=== PATIENT | male | born 1970 | race African-American/Black ===

== ENCOUNTER 2017-05-21 14:01 | Emergency (ER) | payer OTHER ==
[~2017-05-21] VITALS: Ht 167.6 cm; Wt 79.4 kg
[2017-05-21] MEDS ORDERED: IBUPROFEN600 M1 PO (17:12)
[2017-05-21] MEDS ORDERED: TAMIFLU75 M1 PO (17:12)
--- NOTE | 2017-05-21 17:12 | ED INFLUENZA/URI COMPLAINT ---
History of Present Illness General Chief Complaint: General Adult Stated Complaint: "IM NOT FEELING RIGHT" GENERAL WEAKNESS Source: patient Exam Limitations: no limitations Vital Signs & Intake/Output Vital Signs & Intake/Output Vital Signs Date Time Temp Pulse Resp B/P B/P Pulse O2 O2 Flow FiO2 Mean Ox Delivery Rate 05/21 1416 98.1 96 18 153/88 98 Room Air Allergies Coded Allergies: No Known Allergies (05/21/17) Triage Note: PT COMPLAINS OF FLU LIKE SYMPTOMS THAT STARTED 3 DAYS AGO, ACHEY ALL OVER , N/V. Triage Nurses Notes Reviewed? yes HPI: Patient presents for evaluation of severe more or less constant flulike symptoms that began gradually over the weekend. Patient states today he had an onset rather suddenly of chills and hot sweats and muscle aches. He denies cough, diarrhea, dysuria, rashes, recent travel or known ill contacts. He denies any past medical history or current medications. Past History Travel History Traveled to [place] past 21 day No Medical History Any Pertinent Medical History? see below for history Neurological: NONE EENT: NONE Cardiovascular: hypertension Respiratory: NONE Gastrointestinal: NONE Hepatic: NONE Renal: NONE Musculoskeletal: NONE Psychiatric: NONE Endocrine: NONE Blood Disorders: NONE Cancer(s): NONE Surgical History Surgical History: non-contributory Psychosocial History What is your primary language Monegasque Tobacco Use: Never used ETOH Use: denies use Illicit Drug Use: denies illicit drug use Family History Hx Contributory? No Review of Systems Review of Systems Constitutional: Reports: see HPI. EENTM: Reports: no symptoms. Respiratory: Reports: no symptoms. Cardiovascular: Reports: no symptoms. GI: Reports: no symptoms. Genitourinary: Reports: no symptoms. Musculoskeletal: Reports: no symptoms. Skin: Reports: no symptoms. Neurological/Psychological: Reports: no symptoms. Hematologic/Endocrine: Reports: no symptoms. Immunologic/Allergic: Reports: no symptoms. All Other Systems: Reviewed and Negative Physical Exam Physical Exam Ears, Nose, Throat: SEE BELOW Comments: Gen.: Well-nourished, well-developed, no acute respiratory distress. Head: Normocephalic, atraumatic. Eyes: Normal inspection bilaterally Ears: Normal inspection bilaterally Nose: Normal inspection Throat/mouth : Moist mucosa Neck: Supple, full range of motion, no goiter Lungs: Quiet respirations Back: Normal range of motion Extremities: Normal range of motion grossly, no cyanosis clubbing or edema of the upper extremities Neurologic: Cranial nerves grossly intact, speech is clear Skin: warm and dry Psychiatric: Calm, cooperative, no apparent delusions or hallucinations Core Measures Sepsis Present: No Sepsis Focused Exam Completed? No Progress Differential Diagnosis: influenza, VIRAL SYNDROME Plan of Care: Orders Procedure Date/time Status VIRAL CULTURE 05/21 142 Active RAPID VIRAL INFLUENZA A 05/21 1419 Complete Laboratory Tests 05/21/17 1421: Virus Culture Pending Microbiology 05/21 1421 NASOPHARYN: Influenza Virus A & B Rapid Smear - COMP INFLUENZA TYPE A Initial ED EKG: none Departure Departure Disposition: HOME OR SELF CARE Condition: Stable Clinical Impression Primary Impression: Influenza A Referrals: Matias Waters DO (PCP/Family) Additional Instructions: Maintain a good fluid intake. Ibuprofen 600 mg every 6 hours as needed for fever or muscle aches chills or headache. Tamiflu as prescribed. Follow-up with your primary care physician on Saturday if not improved. Return if any concerns or sudden worsening. Thank you for choosing the [facility] for your care. It was a pleasure to serve you today. Cj Sheikh M.D. [facility] Departure Forms: Customer Survey General Discharge Information Prescriptions: Current Visit Scripts Oseltamivir Phosphate (Tamiflu) 1 CAP PO BID #10 CAP Ibuprofen 1 TAB PO Q6P PRN FEVER,ACHES #20 TAB with food
[2017-05-21 17:19] VITALS: BP 148/83
== END 2017-05-21 17:19 ==
LOC: ERH 14:01
DX: J10.1 Influenza due to other identified influenza virus with other respiratory manifestations (principal)
CPT/HCPCS: 87804; 87804-59